=== PATIENT | female | born 1970 | race Caucasian/White ===

== ENCOUNTER → 2016-05-15 | Outpatient (CLI) | payer MEDICAID ==
--- NOTE | 2016-05-15 17:13 | DX ---
Bilateral Hands - Six Views Total May 15, 2016 Indication: Polyarthralgia. Technique: Bilateral AP, lateral, and N[place]aard views. Comparison: None. Findings: The normally mineralized bones are anatomically aligned. Joint spaces are well preserved. N o marginal erosions, osteophytes, periarticular calcification, or chondrocalcinosis. Scattered small degenerative cysts are present in bilateral capitate and lunate bones. Impression: No erosive arthropathy or explanation for diffuse pain.
== END ==
LOC: BRMIMAGING 12:33
PROVIDERS: ATTEND Internal Medicine
DX: M25.50 Pain in unspecified joint (principal)
CPT/HCPCS: 73130-PO

== ENCOUNTER 2018-03-08 09:26 | Emergency (ER) | payer MEDICAID ==
[2018-03-08] MEDS ORDERED: NS 1,000 ML IV ONE (09:56)
[2018-03-08] MEDS ORDERED: ONDANSETRON 4 MG/2 ML VIAL IVP ONE (09:56)
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
[2018-03-08] MEDS ORDERED: POTASSIUM CL 20 MEQ TAB PO ONE (10:56)
[2018-03-08 11:08] VITALS: BP 106/65
== END 2018-03-08 11:06 | disposition home or self-care (01) ==
LOC: CED 09:26
DX: S06.0X0A Concussion without loss of consciousness, initial encounter (principal); R55 Syncope and collapse; E87.6 Hypokalemia; W19.XXXA Unspecified fall, initial encounter; Y92.29 Other specified public building as the place of occurrence of the external cause
CPT/HCPCS: 70450-PO; 80048-PO; 96374; J2405